=== PATIENT | male | born 1945 | race Caucasian/White ===

== ENCOUNTER → 2016-12-18 | Outpatient (CLI) | payer OTHER ==
--- NOTE | 2016-12-19 14:36 | RAD ---
PET oncologic study 12/18/2016 Technique: Blood glucose prior to injection: 92 mg/dL Scan region: Skull base to mid thigh Radiopharmaceutical: F-18 FDG 12.7 mCi IV Calibration time: Start 1455 hours and finished at 1625 hours Administration time: 1503 hours on 12/18/2016 Injection site: Left wrist Postinjection imaging delay: Scan time 1603 hours on 12/18/2016 Clinical information: Diagnostic; bilateral lung mass Comparison: None available. Attenuation correction was performed utilizing a noncontrast, nondiagnostic CT. Findings: There is physiologic FDG activity within the brain parenchyma and oral cavity. Scattered subcentimeter lymph nodes are identified within the neck, none of which are pathologically enlarged or FDG avid. Physiologic radiotracer uptake is identified in the aryepiglottic folds and preepiglottic space. There is a left suprahilar lymph node measuring 11 mm by short axis (series 3, image 141) (Max SUV 2.85). There is a 8 mm short axis lymph node in the left hilar region (series 3, image 149). There is a 12 mm by short axis lymph node in the right hilar region (series 3, image 154) (Max SUV 2.8). There is a 2.3 x 1.9 cm solid noncalcified pulmonary nodule in the left upper lobe with spiculated margins (max SUV 8.7). A 9 mm calcified granuloma is identified in the right lower lobe. There is a rounded solid noncalcified pulmonary nodule in the right lung apex measuring 11 x 12 mm (series 3, image 106) (max SUV 6.25). Physiologic FDG activity is identified within the hepatic parenchyma (max SUV 3.65). Physiologic radiotracer uptake is identified in the kidneys, ureters and urinary bladder. There is physiologic radiotracer uptake in the small and large bowel. Colonic diverticulosis without adjacent inflammatory changes to suggest ventriculitis. Mild atherosclerotic desiccation of the abdominal aorta is present. No free intraperitoneal air. No free fluid within the abdomen or pelvis. No suspicious FDG avid osseous lesions. Impression: 1. FDG avid nodules are identified, one in the left upper lobe measuring 2.3 x 1.9 cm and the other in the right upper lobe measuring 1.1 x 1.2 cm. Either one may represent a primary lung malignancy versus metastasis. Tissue sampling is recommended. There are no FDG avid mediastinal or hilar lymph nodes. Nodes described above may be reactive given the degree of FDG uptake. 2. No FDG avid metastasis to the abdomen or pelvis.
== END | disposition home or self-care (01) ==
LOC: PETSC 15:33
PROVIDERS: ATTEND Internal Medicine
DX: R91.8 Other nonspecific abnormal finding of lung field (principal)
CPT/HCPCS: 78815; A9552

== ENCOUNTER 2017-03-04 09:56 | Outpatient (CLI) | payer OTHER ==
[~2017-03-04] VITALS: Ht 175.3 cm; Wt 75.3 kg
[2017-03-04] VITALS (11 sets, daily range): BP systolic 143–183; BP diastolic 79–91
[2017-03-04 10:17] LABS: BASO % 1 % (0-3); EOS % 1 % (0-3); HEMATOCRIT 47.2 % (39.0-53.0); HEMOGLOBIN 15.7 g/dL (13.0-17.5); LYMPH # 2.1 x10^3/uL (1.0-4.8); LYMPH % 23 % (24-48); MEAN CORPUSCULAR HEMOGLOBIN 32 pg (25-35); MEAN CORPUSCULAR HGB CONC 33 g/dL (31-37); MEAN CORPUSCULAR VOLUME 96 fL (79-100); MONO % 9 % (0-9); NEUT % 66 % (31-73); PLATELET COUNT 245 x10^3/uL (140-400); RED CELL DISTRIBUTION WIDTH 13.1 % (11.5-14.5); WHITE BLOOD COUNT 8.9 x10^3/uL (4.0-11.0)
[2017-03-04] MEDS ORDERED: MONT10TA9 PO (10:37)
[2017-03-04] MEDS ORDERED: TAMS0.4C2 PO (10:37)
[2017-03-04] MEDS ORDERED: PROAIR RESPICL90 MCG IH (10:37)
[2017-03-04] MEDS ORDERED: PANT40TA5 PO (10:37)
[2017-03-04] MEDS ORDERED: FLUT16SP NS (10:37)
[2017-03-04] MEDS ORDERED: LISI-338 PO (10:37)
[2017-03-04 10:39] LABS: INR 0.9 (0.8-1.1); PROTHROMBIN TIME PATIENT 11.7 SEC (11.7-14.0)
[2017-03-04] MEDS ORDERED: LIDOCAINE 1% / SOD BICARB 8.4% 20 ML VIAL. IJ ONE ×2 (11:01→12:00)
[2017-03-04] MEDS ORDERED: fentaNYL PF VIAL 100 MCG/2 ML VIAL ONE (11:31)
[2017-03-04] MEDS ORDERED: MIDAZOLAM HCL/PF 2 MG/2 ML VIAL. ONE (11:31)
[2017-03-04] MEDS ORDERED: MIDAZOLAM HCL/PF 2 MG/2 ML VIAL. IV ONE (12:00)
[2017-03-04] MEDS ORDERED: fentaNYL PF VIAL 100 MCG/2 ML VIAL IV ONE (12:00)
--- NOTE | 2017-03-04 13:33 | RAD ---
EXAM: Chest, single view. HISTORY: Lung biopsy. COMPARISON: CT obtained on the same date and PET/CT dated 12/18/2016. FINDINGS: A frontal view of the chest is obtained. There are slightly specula did left greater than right upper lobe nodules. These are better characterized on the recent PET/CT. There is left basilar atelectasis or pleural-parenchymal scarring. There are prominent biapical pleural reflections without a definite pneumothorax. There is no effusion. The heart is normal in size. There is emphysema. There are a few calcified granulomas. IMPRESSION: 1. No evidence of pneumothorax status post lung biopsy. 2. Left greater than right upper lobe nodules, better characterized on the recent PET/CT. Correlate with biopsy pathology findings. 3. Emphysema.
--- NOTE | 2017-03-04 13:36 | RAD ---
CT-guided biopsy of right upper lobe pulmonary nodule. 03/04/2017. Indication: 71-year-old male with history of left upper lobe squamous or carcinoma, discovered following recent biopsy of the left upper lobe mass. Patient was also found to have a smaller nodule in the right upper lobe also suspicious for malignancy. Both lesions were evident on recent PET/CT imaging. Discussion: The risks, benefits, and alternatives of the procedure were discussed the patient. Informed consent was obtained. A timeout procedure was performed. The patient was placed in the prone position on the CT table. Imaging was performed reconfirming a nodule in the apical anterior right upper lobe. Once an appropriate site for skin entry been selected 1% lidocaine without epinephrine was administered to the skin and subcutaneous tissues. Under intermittent CT guidance a 19-gauge guiding needle was advanced to the periphery of the nodule. 3 x 20-gauge core biopsy samples were obtained. Repeat imaging was performed following the third biopsy demonstrating perilesional hemorrhage partially obscuring the nodule. The guiding needle was therefore removed. After several minutes repeat CT imaging was performed demonstrating no pneumothorax. Perilesional hemorrhage appear grossly stable. The patient remained in stable condition without distress, hemoptysis, or change in hemodynamics. Sterile dressing was applied the patient was transferred to the postoperative area in stable condition. Chest radiograph was obtained 1 hour demonstrating no unexpected post procedural findings. The procedures performed under conscious sedation including continuous cardiopulmonary monitoring via dedicated sedation nurse. Sedation time: 30 minutes Impression: Successful CT-guided biopsy of right upper lobe nodule as described
== END 2017-03-04 14:33 | disposition home or self-care (01) ==
LOC: INTRAD 09:56
PROVIDERS: ATTEND Internal Medicine Hematology & Oncology
DX: C34.91 Malignant neoplasm of unspecified part of right bronchus or lung (principal); E78.00 Pure hypercholesterolemia, unspecified; I10 Essential (primary) hypertension; J44.9 Chronic obstructive pulmonary disease, unspecified; F17.200 Nicotine dependence, unspecified, uncomplicated; Z98.41 Cataract extraction status, right eye; Z79.01 Long term (current) use of anticoagulants; Z98.42 Cataract extraction status, left eye; Z85.3 Personal history of malignant neoplasm of breast; Z88.8 Allergy status to other drugs, medicaments and biological substances
CPT/HCPCS: 32405; 36415; 71010; 77012; 85025; 85610; J2250; J3010; 99152